=== PATIENT | male | born 1980 | race Caucasian/White ===

== ENCOUNTER 2024-04-09 06:04 | Outpatient (RCR) | payer OTHER, SELFPAY | END 2024-04-09 23:59 | disposition home or self-care (01) | LOC: ROT 06:04 | PROVIDERS: ATTENDING PHYSICIAN Physical Medicine & Rehabilitation | DX: I69.398 Other sequelae of cerebral infarction (principal); R26.2 Difficulty in walking, not elsewhere classified; Z73.6 Limitation of activities due to disability | CPT/HCPCS: 97163; 97167; 97530; 97535 ==

== ENCOUNTER 2024-05-10 08:05 | Outpatient (RCR) | payer OTHER, SELFPAY | END 2024-05-10 23:59 | disposition home or self-care (01) | LOC: RST 08:05 | PROVIDERS: ATTENDING PHYSICIAN Physical Medicine & Rehabilitation | DX: I69.320 Aphasia following cerebral infarction (principal) | CPT/HCPCS: 92507; 92523; 97010; 97014; 97110; 97112; 97116; 97140; 97530; 97535; 97760 ==

== ENCOUNTER 2024-06-07 06:37 | Outpatient (RCR) | payer OTHER, SELFPAY | END 2024-06-07 23:59 | disposition home or self-care (01) | LOC: RST 06:37 | PROVIDERS: ATTENDING PHYSICIAN Physical Medicine & Rehabilitation | DX: I69.318 Other symptoms and signs involving cognitive functions following cerebral infarction (principal); R26.89 Other abnormalities of gait and mobility; R53.83 Other fatigue; M62.81 Muscle weakness (generalized); I69.398 Other sequelae of cerebral infarction; I69.320 Aphasia following cerebral infarction; Z73.6 Limitation of activities due to disability | CPT/HCPCS: 92507; 97010; 97014; 97110; 97112; 97116; 97140; 97530; 97535 ==

== ENCOUNTER 2024-07-11 08:47 | Outpatient (RCR) | payer OTHER, SELFPAY | END 2024-07-11 23:59 | disposition home or self-care (01) | LOC: RST 08:47 | PROVIDERS: ATTENDING PHYSICIAN Physical Medicine & Rehabilitation | DX: I69.320 Aphasia following cerebral infarction (principal); I69.398 Other sequelae of cerebral infarction; Z73.6 Limitation of activities due to disability | CPT/HCPCS: 92507; 97014; 97110; 97112; 97116; 97140; 97530; 97535 ==

== ENCOUNTER 2024-08-09 08:08 | Outpatient (RCR) | payer OTHER, SELFPAY | END 2024-08-09 23:59 | disposition home or self-care (01) | LOC: RST 08:08 | PROVIDERS: ATTENDING PHYSICIAN Physical Medicine & Rehabilitation | DX: I69.320 Aphasia following cerebral infarction (principal); I69.398 Other sequelae of cerebral infarction; Z73.6 Limitation of activities due to disability; I69.351 Hemiplegia and hemiparesis following cerebral infarction affecting right dominant side | CPT/HCPCS: 92507; 97010; 97014; 97110; 97112; 97116; 97140; 97530; 97535 ==

== ENCOUNTER 2024-09-10 06:23 | Outpatient (RCR) | payer OTHER, SELFPAY | END 2024-09-10 23:59 | disposition home or self-care (01) | LOC: RST 06:23 | PROVIDERS: ATTENDING PHYSICIAN Physical Medicine & Rehabilitation | DX: I69.320 Aphasia following cerebral infarction (principal); I69.398 Other sequelae of cerebral infarction; Z73.6 Limitation of activities due to disability; I69.351 Hemiplegia and hemiparesis following cerebral infarction affecting right dominant side | CPT/HCPCS: 92507; 97010; 97014; 97110; 97112; 97140; 97530; 97535 ==

== ENCOUNTER 2024-10-11 06:50 | Outpatient (RCR) | payer OTHER, SELFPAY | END 2024-10-11 23:59 | disposition home or self-care (01) | LOC: RST 06:50 | PROVIDERS: ATTENDING PHYSICIAN Physical Medicine & Rehabilitation | DX: I69.320 Aphasia following cerebral infarction (principal); I69.398 Other sequelae of cerebral infarction; Z73.6 Limitation of activities due to disability; I69.351 Hemiplegia and hemiparesis following cerebral infarction affecting right dominant side | CPT/HCPCS: 92507; 97110; 97112; 97116; 97140; 97530; 97535 ==

== ENCOUNTER 2024-11-08 08:10 | Outpatient (RCR) | payer OTHER, SELFPAY | END 2024-11-08 23:59 | disposition home or self-care (01) | LOC: RST 08:10 | PROVIDERS: ATTENDING PHYSICIAN Physical Medicine & Rehabilitation | DX: I69.30 Unspecified sequelae of cerebral infarction (principal); I69.320 Aphasia following cerebral infarction (principal); I69.398 Other sequelae of cerebral infarction; Z73.6 Limitation of activities due to disability; I69.351 Hemiplegia and hemiparesis following cerebral infarction affecting right dominant side | CPT/HCPCS: 92507; 97110; 97112; 97116; 97530; 97535 ==

== ENCOUNTER 2024-12-06 07:31 | Outpatient (RCR) | payer OTHER, SELFPAY | END 2024-12-06 23:59 | disposition home or self-care (01) | LOC: RST 07:31 | PROVIDERS: ATTENDING PHYSICIAN Physical Medicine & Rehabilitation | DX: I69.320 Aphasia following cerebral infarction (principal); I69.398 Other sequelae of cerebral infarction; Z73.6 Limitation of activities due to disability; I69.351 Hemiplegia and hemiparesis following cerebral infarction affecting right dominant side; I69.30 Unspecified sequelae of cerebral infarction | CPT/HCPCS: 92507; 97014; 97110; 97112; 97116; 97140; 97530; 97535 ==

== ENCOUNTER 2025-01-07 06:28 | Outpatient (RCR) | payer OTHER, SELFPAY | END 2025-01-07 23:59 | disposition home or self-care (01) | LOC: RST 06:28 | PROVIDERS: ATTENDING PHYSICIAN Physical Medicine & Rehabilitation | DX: I69.320 Aphasia following cerebral infarction (principal); I69.398 Other sequelae of cerebral infarction; I69.328 Other speech and language deficits following cerebral infarction; I69.351 Hemiplegia and hemiparesis following cerebral infarction affecting right dominant side; Z73.6 Limitation of activities due to disability | CPT/HCPCS: 92507; 97014; 97110; 97112; 97116; 97140; 97530; 97535 ==

== ENCOUNTER 2025-02-07 08:03 | Outpatient (RCR) | payer OTHER, SELFPAY | END 2025-02-07 23:59 | disposition home or self-care (01) | LOC: RST 08:03 | PROVIDERS: ATTENDING PHYSICIAN Physical Medicine & Rehabilitation | DX: I69.320 Aphasia following cerebral infarction (principal); I69.328 Other speech and language deficits following cerebral infarction; I69.351 Hemiplegia and hemiparesis following cerebral infarction affecting right dominant side; Z73.6 Limitation of activities due to disability; I69.398 Other sequelae of cerebral infarction | CPT/HCPCS: 92507; 97014; 97110; 97112; 97116; 97530; 97535; 97537 ==

== ENCOUNTER 2025-03-07 08:25 | Outpatient (RCR) | payer OTHER, SELFPAY | END 2025-03-07 23:59 | disposition home or self-care (01) | LOC: RST 08:25 | PROVIDERS: ATTENDING PHYSICIAN Physical Medicine & Rehabilitation | DX: I69.320 Aphasia following cerebral infarction (principal); I69.328 Other speech and language deficits following cerebral infarction; I69.351 Hemiplegia and hemiparesis following cerebral infarction affecting right dominant side; Z73.6 Limitation of activities due to disability; I69.398 Other sequelae of cerebral infarction | CPT/HCPCS: 92507; 97110; 97112; 97116; 97530; 97535; 97537 ==

== ENCOUNTER 2025-04-08 07:08 | Outpatient (RCR) | payer OTHER, SELFPAY | END 2025-04-08 23:59 | disposition home or self-care (01) | LOC: RST 07:08 | PROVIDERS: ATTENDING PHYSICIAN Physical Medicine & Rehabilitation | DX: I69.320 Aphasia following cerebral infarction (principal); I69.328 Other speech and language deficits following cerebral infarction; I69.351 Hemiplegia and hemiparesis following cerebral infarction affecting right dominant side; Z73.6 Limitation of activities due to disability; I69.398 Other sequelae of cerebral infarction | CPT/HCPCS: 92507; 97110; 97112; 97116; 97140; 97530; 97535; 97537 ==

== ENCOUNTER 2025-05-09 06:24 | Outpatient (RCR) | payer OTHER, SELFPAY | END 2025-05-09 23:59 | disposition home or self-care (01) | LOC: RST 06:24 | PROVIDERS: ATTENDING PHYSICIAN Physical Medicine & Rehabilitation | DX: I69.320 Aphasia following cerebral infarction (principal); I69.328 Other speech and language deficits following cerebral infarction; I69.351 Hemiplegia and hemiparesis following cerebral infarction affecting right dominant side; Z73.6 Limitation of activities due to disability; I69.398 Other sequelae of cerebral infarction | CPT/HCPCS: 92507; 97014; 97110; 97112; 97116; 97530; 97535; 97537 ==

== ENCOUNTER 2025-06-10 06:24 | Outpatient (RCR) | payer OTHER, SELFPAY | END 2025-06-10 23:59 | disposition home or self-care (01) | LOC: RST 06:24 | PROVIDERS: ATTENDING PHYSICIAN Physical Medicine & Rehabilitation | DX: I69.320 Aphasia following cerebral infarction (principal); I69.328 Other speech and language deficits following cerebral infarction; I69.351 Hemiplegia and hemiparesis following cerebral infarction affecting right dominant side; Z73.6 Limitation of activities due to disability; I69.398 Other sequelae of cerebral infarction | CPT/HCPCS: 92507; 97014; 97110; 97112; 97116; 97530; 97535; 97537 ==

== ENCOUNTER 2025-07-11 06:51 | Outpatient (RCR) | payer OTHER, SELFPAY | END 2025-07-11 23:59 | disposition home or self-care (01) | LOC: RST 06:51 | PROVIDERS: ATTENDING PHYSICIAN Physical Medicine & Rehabilitation | DX: I69.320 Aphasia following cerebral infarction (principal); I69.328 Other speech and language deficits following cerebral infarction; I69.351 Hemiplegia and hemiparesis following cerebral infarction affecting right dominant side; Z73.6 Limitation of activities due to disability; I69.398 Other sequelae of cerebral infarction | CPT/HCPCS: 92507; 97014; 97110; 97112; 97116; 97530; 97535 ==

== ENCOUNTER 2025-08-08 06:46 | Outpatient (RCR) | payer OTHER, SELFPAY | END 2025-08-08 23:59 | disposition home or self-care (01) | LOC: RST 06:46 | PROVIDERS: ATTENDING PHYSICIAN Physical Medicine & Rehabilitation | DX: I69.320 Aphasia following cerebral infarction (principal); I69.328 Other speech and language deficits following cerebral infarction; I69.351 Hemiplegia and hemiparesis following cerebral infarction affecting right dominant side; Z73.6 Limitation of activities due to disability; I69.398 Other sequelae of cerebral infarction | CPT/HCPCS: 92507; 97014; 97110; 97112; 97116; 97530; 97535; 97537 ==

== ENCOUNTER 2025-09-09 07:06 | Outpatient (RCR) | payer OTHER, SELFPAY | END 2025-09-09 23:59 | disposition home or self-care (01) | LOC: RST 07:06 | PROVIDERS: ATTENDING PHYSICIAN Physical Medicine & Rehabilitation | DX: I69.320 Aphasia following cerebral infarction (principal); I69.328 Other speech and language deficits following cerebral infarction; I69.351 Hemiplegia and hemiparesis following cerebral infarction affecting right dominant side; Z73.6 Limitation of activities due to disability; I69.398 Other sequelae of cerebral infarction; M54.50 Low back pain, unspecified | CPT/HCPCS: 92507; 97014; 97110; 97112; 97530; 97535; 97537 ==